=== PATIENT | female | born 1965 | race Caucasian/White ===

== ENCOUNTER 2016-08-04 09:21 | Day surgery (SDC) | payer OTHER ==
--- NOTE | 2016-08-04 08:15 | HP ---
DATE OF SURGERY: 08/04/2016 HISTORY OF PRESENT ILLNESS: The patient is a 51 year-old who had some right lower quadrant pain for [address] scan was normal. She had follow up one that was scheduled to be repeated. She did not have a recent endoscopy. No nausea or vomiting. No chronic fever. White blood cell count 4.8. Liver function tests were okay. Original CT scan showed no inflammatory changes and the appendix was normal. She had a follow up obtained. PAST SURGICAL HISTORY: She had left shoulder surgery in the past. MEDICATIONS: None on a regular basis. ALLERGIES: NKDA. PAST SURGICAL HISTORY: FAMILY HISTORY: Negative for inflammatory bowel disease, Crohn's disease or celiac disease. SOCIAL HISTORY: One pack per day smoker. Denies alcohol abuse. REVIEW OF SYSTEMS: Twelve systems reviewed per admission assessment. No chest pain or palpitations other systems negative or noncontributory as above and per preadmission questionnaire. PHYSICAL EXAMINATION: GENERAL: No acute distress. HEENT: Sclerae nonicteric. NECK: No JVD. CHEST: Equal excursion, nonlabored breathing. CVS: Regular rate and rhythm. ABDOMEN: Soft, some tenderness. No rebound. Some vague tenderness in the right mid to low abdomen. No rebound currently. EXTREMITIES: No edema. NEURO: Alert, moving extremities symmetrically. No gross motor deficits noted. IMPRESSION: Right-sided abdominal pain. She had progress CT pending. If it is negative, I feel she would benefit from upper and lower endoscopy to evaluate for peptic ulcer disease, celiac disease, colitis, inflammatory bowel disease or other etiology. Risks and benefits explained in detail including but not limited to bleeding or infection, small risk of bowel injury or perforation possibly requiring open procedure, small risk of missed or nondiagnosis or incomplete exam possibly requiring barium enema, other studies or procedures, general risk of bowel prep, risk of sedation, postoperative risk of nausea, vomiting or cramping possibility of inability to diagnose the etiology of her symptoms possibly requiring other studies. She understands and agrees to the planned procedure and will proceed with colonoscopy and EGD as an outpatient.
[~2016-08-04 09:21] MED LIST: DIPRIVAN 200 MG/20 ML IV ONE; Ketamine HCl 50 MG/ML IV ONE
[2016-08-04] MEDS ORDERED: Lactated Ringers 1,000 ML IV SCH (10:00)
[2016-08-04] MEDS ORDERED: Lactated Ringers 1,000 ML IV ONE (11:47)
[2016-08-04 13:44] VITALS: BP 112/73; PULSE 61; O2SAT 96
--- NOTE | 2016-08-05 07:48 | OP ---
SURGERY DATE/TIME: 08/04/2016 1112 PREOPERATIVE DIAGNOSIS: Persistent right abdominal pain. CT scan negative for appendicitis, need for upper and lower endoscopy for further evaluation. POSTOPERATIVE DIAGNOSES: 1) Minimal to mild gastritis. 2) Short segment question early Mclain's versus distal gastroesophagitis. 3) Poor prep. 4) Few diverticula. 5) Small raised lesion versus hyperplastic lesion rectosigmoid and rectum. 6) Small internal and external hemorrhoids. PROCEDURES: 1) EGD with cold biopsy of the small bowel to evaluate for sprue. 2) Cold biopsy of the antrum to evaluate for Helicobacter pylori. 3) Cold biopsy distal esophagus to evaluate for metaplasia versus distal gastroesophagitis. 4) Colonoscopy to terminal ileum. 5) Retrograde ileoscopy. 6) Raised cold biopsy ileum and throughout the colon to evaluate for microscopic colitis or ileitis. 7) Hot biopsy small raised lesions descending colon, rectosigmoid colon and rectum versus hyperplastic lesion, path pending. SURGEON: Dr. Milton Cuadra. ANESTHESIA: MAC. ESTIMATED BLOOD LOSS: Minimal. INDICATIONS: As noted above. Risks and benefits explained in detail and not limited to and consent obtained. DESCRIPTION OF PROCEDURE AND FINDINGS: The patient was taken to the endoscopy room. MAC anesthesia was induced. After official time out and no disagreement with planned procedure, bite block positioned. Video gastroscope easily passed down the esophagus through the patent pylorus to the junction of the second and third portion of the duodenum. Given her symptoms of right side abdominal pain of unclear etiology cold biopsy taken in the small bowel to evaluate for celiac sprue. The scope pulled back into the stomach. Some minimal to mild gastritis noted. Cold biopsy taken to evaluate for Helicobacter pylori. Good hemostasis noted. On retroflex there did not appear to be any evidence of any large hiatal hernia. Whether she had slight weakness or not difficult to tell endoscopically. Otherwise she did have a little short segment of small little fingerlet of salmon-pink mucosa coming up into the esophagus. Whether this was early Mclain's or not cold biopsy taken. Good hemostasis noted. Otherwise the remainder of the esophagus grossly unremarkable. Again there had been no signs of any large ulcers, masses or any other mucosal lesions in the stomach or the esophagus. The scope is withdrawn. The patient tolerated the procedure well. There were no immediate complications. Attention is then turned to colonoscopy. Digital rectal exam did not reveal any rectal masses. She did have some small internal and external hemorrhoids. Video colonoscope inserted and passed up the tortuous sigmoid, descending, transverse colon. With external pressure and placed on her back, the scope was able to be advanced to ascending colon and actually up into the terminal ileum. Retrograde ileoscopy was performed. There was no macroscopic evidence of Crohn's but given her symptoms cold biopsy taken to evaluate for microscopic ileitis. On withdrawal of the scope no signs of any large polyps, masses or obstructing lesions. Some random cold biopsies were taken throughout the colon particularly the right colon to evaluate for microscopic colitis. There were no signs of any large polyps, masses or obstructing lesions. The scope pulled back to the descending colon. There is a small vague raised lesion versus early polyp or hyperplastic lesion that was removed with hot biopsy forceps this was also accomplished in the rectosigmoid colon where additional small raised lesions were noted and down in the rectum removed with hot biopsy forceps with brief bursts of cautery. Good hemostasis noted. Otherwise she had a few diverticula. She had some small internal and external hemorrhoids. Overall prep was poor with several areas of liquidy semi-solid stool that did limit the exam for potential small lesions but there did not appear to be any obvious large polyps, masses or obstructing lesions. There was no evidence of any obvious thick or macroscopic inflammatory changes particularly in the right colon where she is having pain. The scope is withdrawn. The patient tolerated the procedure well. There were no immediate complications. Unclear etiology of her pain. She said it was a little bit better. Whether she had some gynecologic etiology or not is unclear. The CT scan had just shown some fecal stasis but normal appendix. Findings discussed with the family out in the waiting area.
== END 2016-08-04 13:15 | disposition home or self-care (01) ==
LOC: SDC 09:21
PROVIDERS: ATTEND Surgery
PROC: 0DB38ZX Excision of Lower Esophagus, Via Natural or Artificial Opening Endoscopic, Diagnostic (ICD-10-PCS; principal; 2016-08-04)
PROC: 0DB68ZX Excision of Stomach, Via Natural or Artificial Opening Endoscopic, Diagnostic (ICD-10-PCS; 2016-08-04)
PROC: 0DBM8ZX Excision of Descending Colon, Via Natural or Artificial Opening Endoscopic, Diagnostic (ICD-10-PCS; 2016-08-04)
PROC: 0DBP8ZX Excision of Rectum, Via Natural or Artificial Opening Endoscopic, Diagnostic (ICD-10-PCS; 2016-08-04)
PROC: 0DBN8ZX Excision of Sigmoid Colon, Via Natural or Artificial Opening Endoscopic, Diagnostic (ICD-10-PCS; 2016-08-04)
DX: K29.70 Gastritis, unspecified, without bleeding (principal); K57.30 Diverticulosis of large intestine without perforation or abscess without bleeding; K92.9 Disease of digestive system, unspecified; K64.4 Residual hemorrhoidal skin tags; K64.8 Other hemorrhoids
CPT/HCPCS: 00740; 00810; 36415; 87081; 88305; 88312; J2704